=== PATIENT | male | born 1985 ===

== ENCOUNTER 2024-12-07 07:05 | Emergency (ER) | payer OTHER, SELFPAY ==
[2024-12-07] VITALS (7 sets, daily range): BP systolic 142–179; BP diastolic 71–107; BMI 34.4
--- NOTE | 2024-12-07 08:22 | ED.GENMED ---
History of Present Illness
General
Chief Complaint: Failure to Thrive
Source: patient and other (ambulance officer)
Time Seen by Provider: 12/07/24 07:45
History of Present Illness
History of Present Illness:
39-year-old male with no known past medical history brought to the emergency department with correctional officers from [facility] for evaluation of increased drowsiness, nursing staff at the [facility] were reportedly unable to
obtain a blood pressure prompting them to send the patient for medical clearance. Patient unable to provide much history, special skills officer present with the patient states that since about 10:00 last night patient has had decreased level of
consciousness noting that patient just continually falls asleep. Patient is denying any substance use to me. Further history difficult to obtain as patient would continuously follow sleep during the exam.
Past History
Past History
ED Past Medical History: None
ED Past Surgical History: None
Social History
Tobacco: Other (Unobtainable)
Alcohol: Other (Unobtainable)
Drug: Other (Unobtainable)
Review of Systems
Review of Systems
All Other Systems: ROS reviewed and negative except as documented in HPI and ROS
Phy Exam
Physical Exam
Physical Exam:
GENERAL: Sleeping, arousable to tactile stimulation, able to give a few answers to questions but falls asleep during the exam
HEAD: Normocephalic atraumatic
EYE: pupils equal and somewhat sluggish, 3 mm bilateral
NECK: Supple
ENT: o/p clr, mmm.
CARDIAC: Bradycardic rate, normal rhythm
LUNGS: Clear breath sounds bilaterally, no acute respiratory distress, no wheezes/rales/rhonchi
ABDOMEN: Soft, without focal tenderness, no r/g, no cvat
NEUROLOGICAL: Sleeping, difficult to obtain any history from
SKIN: Warm and dry, skin intact.
MUSCULOSKELETAL: No edema, well perfused.
PSYCH: Unable to assess
Scores
Heart Failure Risk
Heart Failure Risk Score: Not Applicable
Heart Score for Chest Pain Patients
STEMI patient?: Not applicable
Withdrawal Assessment of Alcohol
Withdrawal Assessment Completed?: Not applicable
Course
Orders/Labs/Results
Orders:
Orders
12/07/24 08:35
Alcohol Urgent
Complete Blood Count/With Diff Urgent
Comprehensive Metabolic Panel Urgent
Fentanyl, Urine Urgent
Urine Drug Abuse Screen Urgent
Date Specimen was Collected: 12/07/24
Time Specimen was Collected: 08:33
12/07/24 10:03
CT Head W/o Iv Contrast Urgent
Comment:
Reason For Exam: AMS
Abnormal Lab Results
12/07/24
08:35
MCHC 32.6 L g/dL
(33.0-37.0)
MPV 12.1 H fL
(7.4-10.4)
Absolute Neuts (auto) 7.3 H 10^3/uL
(1.4-6.5)
Absolute Monos (auto) 0.9 H 10^3/uL
(0.1-0.6)
Chloride 108 H mmol/L
(98-107)
Glucose 101 H mg/dl
(70-99)
U Methamphetamines Scrn Positive H
(Negative)
Urine Cocaine Screen Positive H
(Negative)
12/07/24 08:35
12/07/24 08:35
Vital Signs
Initial and Last Documented VS:
Initial Vital Signs
Temp Pulse Resp BP Pulse Ox
98.2 F 60 20 159/96 98
12/07/24 07:05 12/07/24 07:05 12/07/24 07:05 12/07/24 07:05 12/07/24 07:05
Last Documented Vital Signs
Temp Pulse Resp BP Pulse Ox
98 F 77 22 179/107 97
12/07/24 10:00 12/07/24 10:45 12/07/24 10:45 12/07/24 10:43 12/07/24 10:45
Audioprosthologist consulted with Physician
Audioprosthologist consulted with physician?: Yes
Name of Physician Consulted: Buddy
MDM/Problems Addressed
Differential Diagnosis Includes:
Alcohol or other substance intoxication, less concern for an acute infectious etiology as cause of change in mental status, less concern for any intracranial bleeding given no known trauma
MDM/Problems Addressed:
39-year-old male presenting the emergency department for evaluation of reported change in mental status, correctional officers noting that patient initially seemed normal when he initially entered the [facility] however seem to gradually become more
somnolent. Patient is arousable here to tactile stimulation but continuously falling asleep. Suspect substance abuse is most likely. Will check labs, UDS. Low threshold to CT head if patient remains somnolent. Considered giving dose of Narcan
however patient tolerating airway and no signs of respiratory distress.
*Radiology
Radiology exam reviewed: radiology read reviewed
*Pulse Oximetry
Patient hypoxic: no
*Critical Care Note
Total Time (30-74mins, 75-104mins- exclusive of procedures): Not Applicable
Patient Management
Escalation/DeEscalation of care consider admission/obs:
Patient's UDS was noted for methamphetamine and cocaine. He remains sleepy but arousable to voice. Given his persistent drowsiness will obtain CT of the head to ensure no acute neurologic complication or intracranial bleeding. If within normal
limits will discharge back to corrections under the presumption that patient is intoxicated from substance use.
Patient CT ultimately came back without any acute intracranial pathologies. He has remained stable. Medically cleared for incarceration.
ED Attending Note
-
Portions of this chart may have been created with voice recognition software.� Occasional wrong word or��sound alike� substitutions may have occurred due to the inherent limitations of voice recognition software.
Discharge Plan
Departure
Patient Disposition: [facility]
Date of Disposition: 12/07/24
Time of Disposition: 10:57
Discharge Problem:
Substance abuse
Prescriptions:
No Action
Unobtainable
0
Referrals:
[facility] [Family Provider] -
Activity Restrictions/Additional Instructions:
Patient is medically cleared for incarceration
Interventions
Interventions:
*Risk Screen - Suicide Last Done: 12/07/24 07:05
*General Assessment Last Done: 12/07/24 07:05
*Neglect/Abuse Screening Last Done: 12/07/24 07:05
*ED- Fall Risk Assessment Last Done: 12/07/24 07:05
*Nursing Disposition Last Done: 12/07/24 11:00
Discharge Date and Time
Discharge Date/Time: 12/07/24 11:01
Print Language: DANISH
[2024-12-07 09:02] LABS: % Basophils 0.7 % (0-2); % Eosinophils 0.5 % (0-6); % Immature Granulocytes 0.3 % (0-0.5); % Lymphocytes 22.1 % (20.5-51.1); % Monocytes 8.7 % (1.7-9.3); % Neutrophils 67.7 % (42.2-75.2); Absolute Basophils 0.1 10^3/uL (0-0.2); Absolute Eosinophils 0.1 10^3/uL (0-0.7); Absolute Lymphocytes 2.4 10^3/uL (1.2-3.4); Absolute Monocytes 0.9 10^3/uL (0.1-0.6); Absolute Neutrophils 7.3 10^3/uL (1.4-6.5); Hematocrit 47.5 % (39.0-52.0); Hemoglobin 15.5 g/dL (13.0-18.0); Mean Corp Hgb Conc. 32.6 g/dL (33.0-37.0); Mean Corpuscular Hgb 29.3 pg (27.0-31.0); Mean Corpuscular Volume 89.8 fL (80.0-94.0); Mean Platelet Volume 12.1 fL (7.4-10.4); Nucleated Red Blood Cells % 0 % (-); Platelet Count 198 10^3/uL (130-400); Red Blood Cell Count 5.29 10^6/uL (4.70-6.10); Red Cell Dist. Width 13.7 % (11.5-14.5); White Blood Cell Count 10.7 10^3/uL (4.8-10.8)
[2024-12-07 09:16] LABS: ALT (SGPT) 29 U/L (0-50); AST (SGOT) 30 U/L (17-59); Albumin 4.1 g/dl (3.5-5.0); Alkaline Phosphatase 70 U/L (38-126); Blood Urea Nitrogen 19 mg/dl (9-20); Calcium 9.6 mg/dl (8.4-10.2); Carbon Dioxide 30 mmol/L (22-30); Chloride 108 mmol/L (98-107); Estimated Creatinine Clearance 102 ml/min; Glucose 101 mg/dl (70-99); Potassium 4.3 mmol/L (3.5-5.1); Sodium 142 mmol/L (135-145); Total Bilirubin 0.8 mg/dl (0.2-1.3); Total Protein 6.8 g/dl (6.3-8.2); eGFR > 60.00
[2024-12-07 09:22] LABS: Alcohol None Detected
[2024-12-07 09:45] LABS: Amphetamines Negative (Negative); Barbiturates Negative (Negative); Benzodiazepines Negative (Negative); Buprenorphine Negative (Negative); Cocaine Positive (Negative); Marijuana Negative (Negative); Methadone Negative (Negative); Methamphetamines Positive (Negative); Opiates Negative (Negative); Phencyclidine Negative (Negative); Tricyclic Antidepressants Negative (Negative)
[2024-12-07 13:56] LABS: Fentanyl, Urine Negative (Negative)
== END 2024-12-07 11:01 ==
LOC: EMR 07:05
PROVIDERS: Physician Assistant Medical; EMERGENCY PHYSICIAN Student in an Organized Health Care Education/Training Program
DX: R40.0 Somnolence (principal); R40.4 Transient alteration of awareness; R00.1 Bradycardia, unspecified; Z02.79 Encounter for issue of other medical certificate
CPT/HCPCS: 99284; 70450; 80053; 80306; 80307; 82077; 85025